=== PATIENT | female | born 1990 | race Caucasian/White ===

== ENCOUNTER 2020-05-07 12:13 | Outpatient (CLI) | payer OTHER, SELFPAY ==
[2020-05-07 12:46] VITALS: BP 142/79; PULSE 123
[2020-05-07 12:56] LABS: Basophils Percent Auto 0.2 % (0.2-1.2); Eosinophils Absolute Auto 0.1 K/mm3 (0-0.3); Eosinophils Percent Auto 0.9 % (0-4.4); Hematocrit 33.9 % (37.0-47.0); Hemoglobin 11.4 g/dL (12.0-15.0); Immature Granulocyte Absolute 0.08 K/mm3 (0.00-0.031); Immature Granulocyte Percent A 0.8 % (0-0.5); Lymphocytes Absolute Auto 1.45 K/mm3 (0.9-3.2); Lymphocytes Percent Auto 13.9 % (18.3-44.2); Mean Corpuscular HGB Conc 33.6 g/dl (32-36); Mean Corpuscular Hemoglobin 26.8 pg (26-34); Mean Corpuscular Volume 79.8 fl (80-100); Mean Platelet Volume 10.4 fl (7.4-10.4); Monocytes Absolute Auto 0.7 K/mm3 (0.1-0.6); Monocytes Percent Auto 6.2 % (2.6-8.5); Neutrophils Absolute Auto 8.2 K/mm3 (1.3-6.7); Platelet Count Result 233 k/mm3 (150-375); Red Blood Count 4.25 M/mm3 (4.2-5.4); Red Cell Distribution Width 13.5 % (11.5-14.5); White Blood Count 10.4 K/mm3 (4.5-10.0)
[2020-05-07 13:01] VITALS: BP 134/84; PULSE 90
[2020-05-07 13:03] LABS: Add Urine Microscopic? YES; Appearance Urine Cloudy (Clear); Bacteria Urine Trace /hpf; Bilirubin Urine Negative (Negative); Blood Urine Negative (Negative); Color Urine Yellow (Yellow); Glucose Urine UA Negative (Negative); Ketones Urine Negative (Negative); Leukocyte Esterase Ur 1+ LEU/UL (NEGATIVE); Mucus Urine Heavy /lpf; Nitrate Urine Negative (Negative); Protein Urine 2+ mg/dL (Negative); Squamous Epithelial Cell Urine Many /hpf (Few); Urobilinogen Urine Negative mg/dL (<2.0)
[2020-05-07 13:05] LABS: Creatinine Urine 336.6 mg/dL; Total Protein Urine Random 7 mg/dL
[2020-05-07 13:13] LABS: Alanine Aminotransferase 17 U/L (4-35); Albumin Level 3.5 g/dL (3.5-5.1); Alkaline Phosphatase 219 U/L (38-126); Anion Gap 8 mmol/L (8-16); Aspartate Amino Transferase 19 U/L (14-36); Bilirubin,Total 0.1 mg/dL (0.2-1.3); Blood Urea Nitrogen 6 mg/dL (7-17); Calcium 9.1 mg/dL (8.4-10.2); Carbon Dioxide 19 mmol/L (22-30); Chloride 108 mmol/L (98-107); Estimated Glomerular Filt Rate > 60; Glucose 124 mg/dL (65-105); Potassium 3.6 mmol/L (3.4-5.0); Sodium 135 mmol/L (137-145); Uric Acid 4.9 mg/dL (2.5-7.5)
[2020-05-07 13:16] VITALS: BP 140/84; PULSE 100
[2020-05-07 13:23] LABS: Specific Grav Ur 1.033 (1.001-1.035)
[2020-05-07 13:28] VITALS: BP 140/84; PULSE 102
--- NOTE | 2020-05-07 13:31 | PC.NURSE ---
Sven DIAZ called, read bp and lab results. Orders received to discharge pt home.
--- NOTE | 2020-05-07 13:36 | PC.NURSE ---
1213-Pt was sent over from office for elevated bp and PIH evaluation.
== END 2020-05-07 13:35 | disposition home or self-care (01) ==
LOC: ANHOBOP 12:21 → ANHOBPP 12:22
PROVIDERS: Advanced Practice Midwife; Visit Provider Obstetrics & Gynecology
DX: O13.9 Gestational [pregnancy-induced] hypertension without significant proteinuria, unspecified trimester (principal)
CPT/HCPCS: 36415; 59025; 80053; 81001; 82570; 84156; 84550; 85025; 87086; 87088; 99199

== ENCOUNTER 2020-05-29 06:24 | Inpatient (IN) | payer OTHER, SELFPAY ==
[2020-05-29] VITALS (98 sets, daily range): BP systolic 103–171; BP diastolic 60–108; PULSE 78–116; TEMP 36.1–36.6; O2SAT 96–100; BMI 35.4
--- NOTE | 2020-05-29 06:48 | LDADM ---
This patient, Nathaly Rowley, was admitted to Labor/Delivery/Recovery 103 on 05/29/20 at 06:24. Plans for labor, pain management and were discussed with patient. Patient/family oriented to hospital policies and general routines including ID bracelet, bed and alarms, visiting hours, pain management, procedures, bathroom and other care routines, personal items, smoking policy, room service/diet and guest tray routines, infant security routines, call light, and visiting hours. Patient/Family are encouraged to report perceived risks to care and to ask questions if they do not understand what they are told or what they should do. See OBIX for further documentation.
[2020-05-29] MEDS: LACTATED RINGERS 1,000 ML 125 ML IV CONT ×3 (07:25→19:24)
[2020-05-29] MEDS: OXYTOCIN 30 UNITS/NS 500 ML 30 UNITS/500 ML BAG IV CONT (07:31)
--- NOTE | 2020-05-29 07:43 | P.HP_ITS ---
H&P: HPI History of Present Illness Date/Time: 05/29/20 07:43 Chief complaint: Induction of Labor Narrative: Nathaly Rowley is a 29 year old female [facility] Family History Family History (Updated 05/14/20 @ 13:43 by Lauren Lucio RN) Father Hypertension Social History Social History Years smoked: 18 Smoking status: Current every day smoker Tobacco type: cigarettes Substance use: current Gender identity (if verbalized by the patient): Female Spiritual care concerns: No Meds Home Medications and Allergies Home Medications Medication Instructions Recorded Confirmed Type PNV no.[id number] 1 tablet PO 05/14/20 History [ Gummies] doxylamine-pyridoxine (vit B6) 1 tablet PO DAILY 05/29/20 05/29/20 History [Diclegis] Allergies Allergy/AdvReac Type Severity Reaction Status Date / Time No Known Allergies Allergy Verified 06/25/16 19:35 Vital Signs Vital Signs - 24 hr 05/29/20 07:00 05/29/20 07:01 05/29/20 07:31 Pulse Rate 101 H 110 H 92 Blood Pressure 138/90 139/88 143/85 H Assessment and Plan Assessment and plan (1) Chronic hypertension: Code(s): I10 - Essential (primary) hypertension Status: Acute
--- NOTE | 2020-05-29 07:44 | WPDOBADMIT ---
Obstetrics - Admit Note Admission Note: record reviewed. No pertinent additions to the history and/or any subsequent changes in the physical findings that are not consistent with the expected course of the were found. BOY KENNEY at 38 weeks, SVE 1 thick high per RN Additions to the history and/or subsequent changes in the physical findings follow. None.
[2020-05-29 08:54] LABS: Basophils Percent Auto 0.4 % (0.2-1.2); Eosinophils Absolute Auto 0.1 K/mm3 (0-0.3); Hematocrit 34.6 % (37.0-47.0); Hemoglobin 11.2 g/dL (12.0-15.0); Immature Granulocyte Absolute 0.09 K/mm3 (0.00-0.031); Immature Granulocyte Percent A 0.8 % (0-0.5); Lymphocytes Absolute Auto 1.87 K/mm3 (0.9-3.2); Lymphocytes Percent Auto 16.7 % (18.3-44.2); Mean Corpuscular HGB Conc 32.4 g/dl (32-36); Mean Corpuscular Hemoglobin 26.3 pg (26-34); Mean Corpuscular Volume 81.2 fl (80-100); Mean Platelet Volume 10.6 fl (7.4-10.4); Monocytes Absolute Auto 0.8 K/mm3 (0.1-0.6); Monocytes Percent Auto 6.9 % (2.6-8.5); Neutrophils Absolute Auto 8.3 K/mm3 (1.3-6.7); Neutrophils Percent Auto 74.2 % (45.5-73.1); Platelet Count Result 228 k/mm3 (150-375); Red Blood Count 4.26 M/mm3 (4.2-5.4); Red Cell Distribution Width 13.8 % (11.5-14.5); White Blood Count 11.2 K/mm3 (4.5-10.0)
[2020-05-29 09:08] LABS: Alanine Aminotransferase 16 U/L (4-35); Albumin Level 3.3 g/dL (3.5-5.1); Alkaline Phosphatase 238 U/L (38-126); Anion Gap 8 mmol/L (8-16); Aspartate Amino Transferase 19 U/L (14-36); Bilirubin,Total 0.2 mg/dL (0.2-1.3); Blood Urea Nitrogen 9 mg/dL (7-17); Calcium 8.9 mg/dL (8.4-10.2); Carbon Dioxide 21 mmol/L (22-30); Chloride 107 mmol/L (98-107); Estimated CRCL calculation 182 ml/min; Estimated Glomerular Filt Rate > 60; Glucose 126 mg/dL (65-105); Potassium 3.7 mmol/L (3.4-5.0); Sodium 136 mmol/L (137-145)
--- NOTE | 2020-05-29 09:37 | WPDANESEPP ---
Anes - Eval Pre Procedure Procedure: labor epidural Date/Time: 05/29/20 09:37 Preop Diagnosis: labor pain Pre Op Diagnosis: Induction of Labor Patient Data Age: 29 Gender: F Height: 5 ft 9 in Weight: 109 kg Last Vital Signs Temp 36.6 C 05/29/20 07:30 Pulse 105 H 05/29/20 09:31 BP 103/60 05/29/20 09:31 Allergies Allergy/AdvReac Type Severity Reaction Status Date / Time No Known Allergies Allergy Verified 06/25/16 19:35 Home Medications Medication Instructions Recorded Confirmed Type PNV no.[id number] 1 tablet PO 05/14/20 History [ Gummies] doxylamine-pyridoxine (vit B6) 1 tablet PO DAILY 05/29/20 05/29/20 History [Diclegis] Laboratory Tests 05/29/20 05/29/20 05/29/20 07:36 07:36 07:36 WBC 11.2 K/mm3 H K/mm3 (4.5-10.0) RBC 4.26 M/mm3 M/mm3 (4.2-5.4) Hgb 11.2 g/dL L g/dL (12.0-15.0) Hct 34.6 % L % (37.0-47.0) MCV 81.2 fl fl (80-100) MCH 26.3 pg pg (26-34) MCHC 32.4 g/dl g/dl (32-36) RDW 13.8 % % (11.5-14.5) Plt Count 228 k/mm3 k/mm3 (150-375) MPV 10.6 fl H fl (7.4-10.4) Immature Gran % (Auto) 0.8 % H % (0-0.5) Neut % (Auto) 74.2 % H % (45.5-73.1) Lymph % (Auto) 16.7 % L % (18.3-44.2) [place] % (Auto) 6.9 % % (2.6-8.5) Eos % (Auto) 1.0 % % (0-4.4) Baso % (Auto) 0.4 % % (0.2-1.2) Lymph # (Auto) 1.87 K/mm3 K/mm3 (0.9-3.2) Barrow # (Auto) 0.8 K/mm3 H K/mm3 (0.1-0.6) Eos # (Auto) 0.1 K/mm3 K/mm3 (0-0.3) Baso # (Auto) 0.0 K/mm3 K/mm3 (0.0-0.1) Abs Immat Gran (auto) 0.09 K/mm3 H K/mm3 (0.00-0.031) Absolute Neuts (auto) 8.3 K/mm3 H K/mm3 (1.3-6.7) Absolute Nucleated RBC 0.0 K/mm3 K/mm3 (0.0-0.012) Nucleated RBC % 0.0 % % (0.0-0.2) Sodium 136 mmol/L L mmol/L (137-145) Potassium 3.7 mmol/L mmol/L (3.4-5.0) Chloride 107 mmol/L mmol/L (98-107) Carbon Dioxide 21 mmol/L L mmol/L (22-30) Anion Gap 8 mmol/L mmol/L (8-16) BUN 9 mg/dL mg/dL (7-17) Creatinine 0.50 mg/dL L mg/dL (0.7-1.0) Estim Creat Clear Calc 182 ml/min ml/min Estimated GFR > 60 (59 - ) Glucose 126 mg/dL H mg/dL (65-105) Calcium 8.9 mg/dL mg/dL (8.4-10.2) Total Bilirubin 0.2 mg/dL mg/dL (0.2-1.3) AST 19 U/L U/L (14-36) ALT 16 U/L U/L (4-35) Alkaline Phosphatase 238 U/L H U/L (38-126) Total Protein 7.0 g/dL g/dL (6.3-8.2) Albumin 3.3 g/dL L g/dL (3.5-5.1) RPR Pending Patient hx anesthesia problems: none Family hx anesthesia problems: none [facility] Family History Family History (Updated 05/14/20 @ 13:43 by Lauren Lucio RN) Father Hypertension Social History Social History Years smoked: 18 Smoking status: Current every day smoker Tobacco type: cigarettes Substance use: current Gender identity (if verbalized by the patient): Female Spiritual care concerns: No Exam Day of Procedure 05/29/20 09:37
--- NOTE | 2020-05-29 17:42 | PM.OBPNVD ---
OB - PN: Subj Subjective Date/time seen: 05/29/20 17:42 AROM - clear, 2-3/50/-2 Reassuring status OB - PN: Obj Data Labs CBC & Chem 7: 05/29/20 07:36 05/29/20 07:36 Labs: Laboratory Results - last 24 hr 05/29/20 05/29/20 05/29/20 07:36 07:36 07:36 WBC 11.2 H RBC 4.26 Hgb 11.2 L Hct 34.6 L MCV 81.2 MCH 26.3 MCHC 32.4 RDW 13.8 Plt Count 228 MPV 10.6 H Immature Gran % (Auto) 0.8 H Neut % (Auto) 74.2 H Lymph % (Auto) 16.7 L Esmeralda % (Auto) 6.9 Eos % (Auto) 1.0 Baso % (Auto) 0.4 Lymph # (Auto) 1.87 Esmeralda # (Auto) 0.8 H Eos # (Auto) 0.1 Baso # (Auto) 0.0 Abs Immat Gran (auto) 0.09 H Absolute Neuts (auto) 8.3 H Absolute Nucleated RBC 0.0 Nucleated RBC % 0.0 Sodium 136 L Potassium 3.7 Chloride 107 Carbon Dioxide 21 L Anion Gap 8 BUN 9 Creatinine 0.50 L Estim Creat Clear Calc 182 Estimated GFR > 60 Glucose 126 H Calcium 8.9 Total Bilirubin 0.2 AST 19 ALT 16 Alkaline Phosphatase 238 H Total Protein 7.0 Albumin 3.3 L Blood Type A Positive Antibody Screen Negative OB - PN A/P Time Spent With Patient Time: Total time spent is greater than 50% in coordination of care (as documented) at patient's floor/unit and/or counseling patient:
--- NOTE | 2020-05-29 23:29 | PM.OBPRVD ---
OB - Delivery Note Procedure Delivery date: 05/29/20 Procedure: Vaginal delivery. events: Induced HTN (chronic) and Labor Induction Intrapartal events: None Induction method: AROM and per pitocin protocol Delivery monitor: internal FHT and internal uterine Route of delivery: Episiotomy description: None Laceration description: None Specimen: Yes Estimated blood loss (mL): 145 Anesthesia type: Epidural Disposition: other () Baby Date of : 05/29/20 Time of : 23:19 Weeks of gestation at delivery: 38 gender: Female Weight (pounds): 6 Weight (ounces): 5 presentation: vertex position: Left Occiput Anterior Placenta delivery description: Spontaneous cord vessel description: 3 Vessels and Clamped/Cut score one minute: 8 score five minutes: 9 Narrative: Mother and baby [id number] in stable condition.
[2020-05-29] MEDS: OXYTOCIN 30 UNITS/NS 500 ML 30 UNITS/500 ML BAG 125 UNITS IV CONT (23:52)
[2020-05-29] MEDS: IBUPROFEN 600 MG TABLET PO (23:53)
[2020-05-29] MEDS: BENZOCAINE 20% AER SPR (*SP) 56 GM CAN 1 SPRAY TOPICAL (23:54)
[2020-05-29] MEDS: WITCH HAZEL 40 PADS 1 PAD TOPICAL (23:54)
[2020-05-30] VITALS (10 sets, daily range): BP systolic 126–153; BP diastolic 75–112; PULSE 87–117; RESP 16; TEMP 36.4–36.6; O2SAT 99–100
--- NOTE | 2020-05-30 01:54 | OBPPTRN ---
Patient transferred to post room #280 via wheelchair. Support person present. Oriented to unit, room, information board, rooming in, admission packet and security measures. Patient verbalizes understanding. in level II nursery.
[2020-05-30 05:37] LABS: Hematocrit 33.9 % (37.0-47.0); Hemoglobin 11.1 g/dL (12.0-15.0)
[2020-05-30] MEDS: DOCUSATE SODIUM 100 MG CAPSULE PO (07:42)
[2020-05-30] MEDS: IBUPROFEN 600 MG TABLET PO ×2 (07:42→13:51)
--- NOTE | 2020-05-30 07:50 | PM.OBPNVD ---
OB - PN: Subj Subjective Date/time seen: 05/30/20 07:50 Patient comments: no complaints, pain well controlled and other (Lochia similar to menses) Decker baby status: doing well OB - PN: Obj Data Labs CBC & Chem 7: 05/30/20 04:53 05/29/20 07:36 Labs: Laboratory Results - last 24 hr 05/29/20 05/29/20 05/29/20 07:36 07:36 07:36 WBC 11.2 H RBC 4.26 Hgb 11.2 L Hct 34.6 L MCV 81.2 MCH 26.3 MCHC 32.4 RDW 13.8 Plt Count 228 MPV 10.6 H Immature Gran % (Auto) 0.8 H Neut % (Auto) 74.2 H Lymph % (Auto) 16.7 L [place] % (Auto) 6.9 Eos % (Auto) 1.0 Baso % (Auto) 0.4 Lymph # (Auto) 1.87 [place]born # (Auto) 0.8 H Eos # (Auto) 0.1 Baso # (Auto) 0.0 Abs Immat Gran (auto) 0.09 H Absolute Neuts (auto) 8.3 H Absolute Nucleated RBC 0.0 Nucleated RBC % 0.0 Sodium 136 L Potassium 3.7 Chloride 107 Carbon Dioxide 21 L Anion Gap 8 BUN 9 Creatinine 0.50 L Estim Creat Clear Calc 182 Estimated GFR > 60 Glucose 126 H Calcium 8.9 Total Bilirubin 0.2 AST 19 ALT 16 Alkaline Phosphatase 238 H Total Protein 7.0 Albumin 3.3 L Blood Type A Positive Antibody Screen Negative 05/30/20 04:53 WBC RBC Hgb 11.1 L Hct 33.9 L MCV MCH MCHC RDW Plt Count MPV Immature Gran % (Auto) Neut % (Auto) Lymph % (Auto) [place] % (Auto) Eos % (Auto) Baso % (Auto) Lymph # (Auto) [place] # (Auto) Eos # (Auto) Baso # (Auto) Abs Immat Gran (auto) Absolute Neuts (auto) Absolute Nucleated RBC Nucleated RBC % Sodium Potassium Chloride Carbon Dioxide Anion Gap BUN Creatinine Estim Creat Clear Calc Estimated GFR Glucose Calcium Total Bilirubin AST ALT Alkaline Phosphatase Total Protein Albumin Blood Type Antibody Screen OB - PN A/P Plan day: 1 (s/p vaginal delivery, doing well) Plan: routine care Time Spent With Patient Time: Total time spent is greater than 50% in coordination of care (as documented) at patient's floor/unit and/or counseling patient: Exam Const: General: no acute distress GI: Inspection: other (Fundus firm and nontender at umbilicus) GI Palp: Yes Soft to palpation and No Tenderness to palpation present (GI) Extrem: General: no edema
--- NOTE | 2020-05-30 08:14 | WPDANLDPN2 ---
Anes-Prog Note L&D Date/Time: 05/30/20 08:14 Comfortable throughout: labor Neuraxial method: epidural Epidural/Spinal procedure site: clean & non-tender Neuro status: Neuro function grossly intact. Cardiovascular status: normal Respiratory status: normal Airway patency: baseline Mental status: baseline Post-Op hydration status: normal Vital Signs: Last Vital Signs Temp 36.4 C 05/30/20 01:54 Pulse 90 05/30/20 01:54 Resp 16 05/30/20 01:54 BP 131/86 05/30/20 01:54 Pulse Ox 100 05/30/20 01:54 I/O: Intake & Output 05/29/20 05/30/20 05/30/20 23:59 07:59 15:59 Intake Total 2500 Output Total 65 Balance 2500 -65 Post-procedural complaints: none Patient feedback: Patient satisfied with anesthetic care.
[2020-05-30 10:03] LABS: Rapid Plasma Reagin Non-Reactive (NonReactive)
--- NOTE | 2020-05-30 10:18 | WPDANESEPPF ---
Anes - Initial Pre Proc Eval Procedure: Operation Date: 05/30/20 12:00 Proposed Procedures p Post- Tubal Ligation - Kathryn Colbert MD Date/Time: 05/30/20 10:18 Surgeon: Kathryn Colbert MD Pre Op Diagnosis: Induction of Labor Patient Data Age: 29 Gender: F Height: 1.75 m Weight: 109 kg Last Vital Signs Temp 36.6 C 05/30/20 07:35 Pulse 87 05/30/20 07:35 Resp 16 05/30/20 07:35 BP 140/94 H 05/30/20 09:25 Pulse Ox 99 05/30/20 07:35 Allergies Allergy/AdvReac Type Severity Reaction Status Date / Time No Known Allergies Allergy Verified 06/25/16 19:35 Home Medications Medication Instructions Recorded Confirmed Type PNV no.[id number] 1 tablet PO 05/14/20 History [ Gummies] doxylamine-pyridoxine (vit B6) 1 tablet PO DAILY 05/29/20 05/29/20 History [Diclegis] Laboratory Tests 05/29/20 05/30/20 07:36 04:53 Hgb 11.1 g/dL L g/dL (12.0-15.0) Hct 33.9 % L % (37.0-47.0) RPR Non-reactive (NonReactive) Patient hx anesthesia problems: none Family hx anesthesia problems: none PMFSH Past Medical History Medical History (Updated 05/30/20 @ 10:19 by Chad Dorsey MD) Anxiety Chronic hypertension Family History Family History (Updated 05/14/20 @ 13:43 by Lauren Lucio RN) Father Hypertension Social History Social History Years smoked: 18 Smoking status: Current every day smoker Tobacco type: cigarettes Substance use: current Gender identity (if verbalized by the patient): Female Spiritual care concerns: No Anes - Eval Final PreProcedure Day of Procedure 05/30/20 10:18 Patient weight: obese Heart: regular rate and rhythm Lungs: clear to auscultation and normal air movement Airway: Mallampati scale class II Neurological: alert and oriented Last oral intake: >/= 8 hours ASA classification: III Emergent: no Anesthetic plan: proceed Anesthesia type and monitoring: general GIVS Informed Consent: The patient's anesthetic plan and its attendant risks and benefits were discussed with the patient/family/POA. Questions were solicited and answers provided to the satisfaction of the patient/family/POA.
--- NOTE | 2020-05-30 11:01 | PM.OBDSVD ---
DS: Admitting Diagnosis Admitting Diagnosis Admitting Diagnosis: Induction of Labor DS: Discharge Diagnosis Discharge Diagnosis (1) Term : Code(s): Z34.90 - Encounter for supervision of normal , unspecified, unspecified trimester Status: Acute OB - DS: Summary Hospital Course Hospital Course: unremarkable, the patient had a vaginal , she is recovering normally, her hospital course was unremarkable. She is being discharged early due to her baby being transferred to tertiary care center. OB Procedures : NST OB Procedures Intrapartum: Spontaneous Vag Delivery OB Procedures: : None Peripartum Data Delivery Method: Natural Vaginal Procedures: Procedures Operation Date: 05/30/20 12:00 <No data on this case meets the specified criteria> Status at Discharge Functional status at discharge: independent ambulation Time Spent with Patient Time attestation: Total time spent providing and/or coordinating discharge services: DS: Data Data Completed and Pending Labs on day of discharge: Labs from last 24 hours 05/30/20 05/29/20 04:53 07:36 Hgb 11.1 L Hct 33.9 L RPR Non-reactive Discharge Plan Discharge Attending physician on discharge: Kathryn Colbert Consulting providers: Constance Manrique ; Chad Dorsey Discharging Clinician: Kathryn Colbert Patient Disposition: Home, Self-Care Activity: pelvic rest Diet: as tolerated Discharge Instructions: //Education:// Mom and Baby Guide Given to: Patient Follow-Up: Call your delivering provider's office for an appointment to be seen in: 1 week B/P check Come to the [facility] for the follow-up appointment. Appointment Date/Time: 05/31/2020 at 9:00am Call [phone] if you are unable to keep your appointment time. BREAST CARE: * Wear a snug supportive bra. * For engorgement discomfort: Bottle Feeding: * May apply ice packs EPISIOTOMY/PERINEAL CARE: * Until bleeding stops, use your krystin bottle after urinating * Change your pad frequently throughout the day * You may take sitz baths several times a day (fill your bathtub with warm water and soak for 20 minutes.) Do NOT bathe in the water * No tub baths until seen by your physician - You may shower ACTIVITY: * Rest as much as possible. * Do not exercise or lift anything heavier than your baby (such as laundry or other children.) * Avoid stairs or driving as much as possible. * Do not put anything into the vagina. No douching, tampons, or sexual activity until seen by physician. NOTIFY PHYSICIAN IF YOU HAVE ANY QUESTIONS OR IF ANY OF THE FOLLOWING SYMPTOMS OCCUR: * If your episiotomy or incision becomes red, swollen, or more painful than what you have experienced in the hospital. * If your vaginal bleeding becomes foul smelling. * If your vaginal bleeding becomes more heavy than a period or if your bleeding changes from pink to bright red. However, you may pass an occasional walnut-sized clot once or twice for the first week . * If you experience a sharp, shooting pain in you calves. * If you discover a hard, reddened area on your breast or if you experience flu-like symptoms. DIET: * Eat regular, well-balanced meals. * Drink plenty of fluids daily. If , drink to thirst. Patient Instructions: How to Stop Smoking (GEN) Follow-up/Referrals: Kathryn Colbert MD [Physician] - Discharge Medications: Continued Gummies 400 mcg-35 mg- 25 mg-5 mg Tablet,Chewable 1 tablet PO RF: 0 doxylamine-pyridoxine (vit B6) [Diclegis] 10-10 mg Tablet,Delayed Release (Dr/Ec) 1 tablet PO DAILY RF: 0 Date of admission: 05/29/20 06:24 Primary Care Provider: PHYSICIAN,PHOTOGEOLOGIST Admitting Provider: Kathryn Colbert Discharge Date/Time: 05/30/20 14:01 Attending physician on admission: Kathryn Colbert
[2020-05-30] MEDS: TETANUS,DIPHTHERIA,AC PERTUSSIS ADULT (0.5 ML) BOOSTRIX IM (12:32)
[2020-05-30] MEDS: MULTIVIT/MIN/PREN/FOL AC/IRON TABLET 1 TAB PO (12:32)
[2020-05-30] MEDS: MEASLES,MUMPS,RUBELLA VACCINE 0.5 ML VIAL SUB-Q (12:33)
[2020-05-31 09:12] VITALS: BP 162/97; PULSE 122; RESP 22; TEMP 36.8; O2SAT 100
== END 2020-05-30 14:01 | disposition home or self-care (01) | DRG 560 ==
LOC: ANHLDR 06:29 → ANHOB2 05-30 03:18
PROVIDERS: Advanced Practice Midwife; Admitting Provider Obstetrics & Gynecology; Visit Provider Obstetrics & Gynecology
DX: O10.02 Pre-existing essential hypertension complicating childbirth (principal); Z37.0 Single live birth; Z3A.38 38 weeks gestation of pregnancy; Z23 Encounter for immunization; O99.334 Smoking (tobacco) complicating childbirth; F17.210 Nicotine dependence, cigarettes, uncomplicated; O99.344 Other mental disorders complicating childbirth; F41.9 Anxiety disorder, unspecified; O99.214 Obesity complicating childbirth; E66.9 Obesity, unspecified
CPT/HCPCS: 36415; 80053; 85014; 85018; 85025; 86592; 86850; 86900; 86901; 88307; 90471; 90686; 90710; 90715; A9270; G0008; J2590; J2795; J7120

== ENCOUNTER 2020-06-11 11:24 | Outpatient (CLI) | payer OTHER, SELFPAY ==
[2020-06-11] VITALS (22 sets, daily range): BP systolic 73–159; BP diastolic 32–114; PULSE 65–104
[2020-06-11 12:09] LABS: Basophils Absolute Auto 0.1 K/mm3 (0.0-0.1); Basophils Percent Auto 0.6 % (0.2-1.2); Eosinophils Absolute Auto 0.4 K/mm3 (0-0.3); Eosinophils Percent Auto 4.2 % (0-4.4); Hematocrit 35.7 % (37.0-47.0); Hemoglobin 11.5 g/dL (12.0-15.0); Immature Granulocyte Absolute 0.03 K/mm3 (0.00-0.031); Immature Granulocyte Percent A 0.3 % (0-0.5); Lymphocytes Absolute Auto 1.83 K/mm3 (0.9-3.2); Lymphocytes Percent Auto 20.2 % (18.3-44.2); Mean Corpuscular HGB Conc 32.2 g/dl (32-36); Mean Corpuscular Hemoglobin 25.9 pg (26-34); Mean Corpuscular Volume 80.4 fl (80-100); Mean Platelet Volume 9.6 fl (7.4-10.4); Monocytes Absolute Auto 0.6 K/mm3 (0.1-0.6); Monocytes Percent Auto 7.1 % (2.6-8.5); Neutrophils Absolute Auto 6.1 K/mm3 (1.3-6.7); Neutrophils Percent Auto 67.6 % (45.5-73.1); Platelet Count Result 260 k/mm3 (150-375); Red Blood Count 4.44 M/mm3 (4.2-5.4); Red Cell Distribution Width 13.2 % (11.5-14.5); White Blood Count 9.1 K/mm3 (4.5-10.0)
[2020-06-11 12:21] LABS: Alanine Aminotransferase 16 U/L (4-35); Albumin Level 3.7 g/dL (3.5-5.1); Alkaline Phosphatase 159 U/L (38-126); Anion Gap 6 mmol/L (8-16); Aspartate Amino Transferase 19 U/L (14-36); Bilirubin,Total 0.5 mg/dL (0.2-1.3); Blood Urea Nitrogen 9 mg/dL (7-17); Calcium 9.1 mg/dL (8.4-10.2); Carbon Dioxide 24 mmol/L (22-30); Chloride 107 mmol/L (98-107); Estimated Glomerular Filt Rate > 60; Glucose 106 mg/dL (65-105); Potassium 3.7 mmol/L (3.4-5.0); Sodium 137 mmol/L (137-145); Uric Acid 5.4 mg/dL (2.5-7.5)
[2020-06-11] MEDS: LABETALOL HCL 100 MG TABLET 200 MG PO (12:47)
[2020-06-11] MEDS: LABETALOL HCL 100 MG TABLET PO (15:22)
== END 2020-06-11 19:12 | disposition home or self-care (01) ==
LOC: ANHOBOP 11:28 → ANHOBPP 11:29
PROVIDERS: Visit Provider Obstetrics & Gynecology
DX: O13.9 Gestational [pregnancy-induced] hypertension without significant proteinuria, unspecified trimester (principal)
CPT/HCPCS: 36415; 80053; 84550; 85025; 99199; A9270

== ENCOUNTER 2020-07-21 01:18 | Outpatient (CLI) | payer OTHER, SELFPAY ==
[2020-07-21 22:13] LABS: SARS-CoV-2 RNA PCR Negative
== END 2020-07-21 01:19 | disposition home or self-care (01) ==
LOC: ANHCOVIDDT 01:18
PROVIDERS: Visit Provider Obstetrics & Gynecology
DX: Z01.812 Encounter for preprocedural laboratory examination (principal); Z20.828 Contact with and (suspected) exposure to other viral communicable diseases
CPT/HCPCS: 87635; C9803; U0003

== ENCOUNTER 2020-07-24 00:32 | Day surgery (SDC) | payer OTHER, SELFPAY ==
[2020-07-11 10:18] VITALS: BMI 34.2
[2020-07-24] VITALS (11 sets, daily range): BP systolic 128–165; BP diastolic 86–104; PULSE 51–89; RESP 12–20; TEMP 36.4–36.6; O2SAT 95–100
[2020-07-24] MEDS: ACETAMINOPHEN 500 MG TABLET 1000 MG PO (06:37)
--- NOTE | 2020-07-24 06:51 | WPDANESEPPF ---
Anes - Initial Pre Proc Eval Procedure: Operation Date: 07/24/20 07:30 Proposed Procedures p Laparoscopic Bilateral Tubal Cauterization - Kathryn Colbert MD Date/Time: 07/24/20 06:51 Surgeon: Kathryn Colbert MD Pre Op Diagnosis: Desires Sterilization Patient Data Age: 29 Gender: F Height: 5 ft 8 in Weight: 98.25 kg Last Vital Signs Temp 36.6 C 07/24/20 06:15 Pulse 89 07/24/20 06:15 Resp 16 07/24/20 06:15 BP 151/104 H 07/24/20 06:15 Pulse Ox 98 07/24/20 06:15 Allergies Allergy/AdvReac Type Severity Reaction Status Date / Time No Known Allergies Allergy Verified 07/24/20 06:26 Home Medications Medication Instructions Recorded Confirmed Type No Home Medications 07/11/20 07/24/20 History Patient hx anesthesia problems: none Family hx anesthesia problems: none PMFSH Past Medical History Medical History Anxiety Chronic hypertension Family History Family History (Updated 05/14/20 @ 13:43 by Lauren Lucio RN) Father Hypertension Social History Social History Years smoked: 18 Smoking status: Current every day smoker Tobacco type: cigarettes Alcohol intake: current Drinks per week: 2 Substance use: current Substance use type: marijuana Last use: 07/11/2020 Gender identity (if verbalized by the patient): Female Spiritual care concerns: No Anes - Eval Final PreProcedure Day of Procedure 07/24/20 06:51 Patient weight: obese Heart: regular rate and rhythm Lungs: decreased breath sounds Airway: Mallampati scale class 1 Neurological: alert and oriented Last oral intake: >/= 8 hours ASA classification: III Emergent: no Anesthetic plan: proceed Anesthesia type and monitoring: general ETT and standard monitoring Informed Consent: The patient's anesthetic plan and its attendant risks and benefits were discussed with the patient/family/POA. Questions were solicited and answers provided to the satisfaction of the patient/family/POA.
--- NOTE | 2020-07-24 06:53 | SUR.PREOP ---
0650 dr ontiveros aware bp 151/104.no ekg needed.
[2020-07-24] MEDS: LACTATED RINGERS 1,000 ML 30 ML IV CONT ×2 (06:55→09:16)
[2020-07-24] MEDS: KETOROLAC 15 MG/ML VIAL (*BKC) IV PUSH (07:02)
--- NOTE | 2020-07-24 07:10 | WPDHPUPDATE1 ---
History and Physical Update Update Date/Time: 07/24/20 07:10 History and Physical has been reviewed, including an updated exam of the patient. There are NO changes in the patient's condition. Risks, benefits, and alternatives have been discussed and questions answered. Patient agrees to proceed with procedure.
--- NOTE | 2020-07-24 07:24 | PM.IMHP ---
H&P: HPI History of Present Illness Date/Time: 07/24/20 07:24 Chief complaint: Desires Sterilization Narrative: Nathaly Rowley is a 29 year old female , multi hip, who presents for female sterilization. We are going to perform laparoscopic bilateral tubal ligation. She understands the risks. She understands that injuries may occur that result in hospitalization, more surgery, severe illness. She understands the risk of hemorrhage and infection. Review of Systems Constitutional: Constitutional: Reports no additional constitutional complaints, Denies fatigue, Denies headache(s), Denies lethargy and Denies weakness Eyes: Eyes: Reports no additional eye complaints, Denies blurry vision and Denies photophobia ENT: Reports as per HPI, Denies headache(s) and Denies neck pain Cardiovascular: Cardiovascular: Denies chest pain, Denies diaphoresis, Denies leg edema, Denies palpitations and Denies dyspnea Respiratory: Respiratory: Denies hemoptysis, Denies dyspnea and Denies wheezing Gastrointestinal: Gastrointestinal: Denies abdominal pain, Denies melena, Denies bloating, Denies hematochezia, Denies nausea and Denies vomiting Genitourinary: Genitourinary: Reports no additional female genitourinary complaints Musculoskeletal: Musculoskeletal: Denies joint swelling, Denies neck pain, Denies numbness and Denies stiffness Neurologic: Denies Abnormal speech present, Denies confusion, Denies headache(s), Denies numbness and Denies weakness Psychiatric: Psychiatric: Denies anxiety, Denies confusion, Denies depression, Denies homicidal ideation and Denies suicidal ideation Endocrine: Endocrine: Denies fatigue and Denies palpitations Allergic/Immunologic: Allergic/Immunologic: Denies wheezing PMFSH Past Medical History Medical History Anxiety Chronic hypertension Family History Family History (Updated 05/14/20 @ 13:43 by Lauren Lucio RN) Father Hypertension Social History Social History Years smoked: 18 Smoking status: Current every day smoker Tobacco type: cigarettes Alcohol intake: current Drinks per week: 2 Substance use: current Substance use type: marijuana Last use: 07/11/2020 Gender identity (if verbalized by the patient): Female Spiritual care concerns: No Meds Home Medications and Allergies Home Medications Medication Instructions Recorded Confirmed Type No Home Medications 07/11/20 07/24/20 History Allergies Allergy/AdvReac Type Severity Reaction Status Date / Time No Known Allergies Allergy Verified 07/24/20 06:26 Vital Signs Vital Signs - 24 hr 07/24/20 06:15 Temperature 97.9 F Pulse Rate 89 Respiratory Rate 16 Blood Pressure 151/104 H Pulse Oximetry 98 Exam Const: General: healthy appearing, comfortable and no acute distress; No confusion Orientation/consciousness: No confusion Eyes: Direct Ophthalmoscopy: No photophobia Resp: Auscultation: clear to auscultation bilaterally, no rales, no rhonchi and no wheezes Cardio: Rate: regular rate Heart sounds: no click, no murmurs and no rubs GI: Inspection: non-distended GI Palp: No abdominal tenderness Auscultation: normal bowel sounds Neuro: General: No confusion Speech: No Abnormal speech present Extrem: General: normal to inspection, no pedal edema and no calf tenderness Assessment and Plan Assessment and plan (1) Encounter for female sterilization procedure: Code(s): Z30.2 - Encounter for sterilization Status: Acute Assessment and Plan: this patient is a 29-year-old multiparous female who presents for laparoscopic bilateral tubal ligation. She understands the risks, benefits, and alternatives. She has completed the informed consent process is ready to proceed.
--- NOTE | 2020-07-24 08:01 | PM.PROC ---
Procedure Note - Detailed Date of procedure: 07/24/20 Pre-op diagnosis: Desires Sterilization Post-op diagnosis: same Procedure performed: Laparoscopic bilateral tubal ligation Description of procedure: Patient was taken the operating room. She has prepped draped in the dorsal lithotomy position after induction of general anesthesia. A 5 mm abdominal incision was made in left upper quadrant of the abdomen with scalpel. A 5 mm trocars inserted the intra-abdominal cavity under direct visualization of the scope. Pneumoperitoneum was achieved. A 5 mm periumbilical incision was made using a scalpel on the abdominal scan. A 5 mm trocar was inserted the intra-abdominal cavity under visualization of the scope. The fallopian tube was grasped with the bipolar cautery in the ampullary region. It was completely desiccated in a 1.5 cm area of the fallopian tube. This was performed in identical fashion on the contralateral side. The instruments were withdrawn. The pneumoperitoneum was reduced. The trocars were removed. The skin was closed with subcuticular 4 Monocryl. This incisions were covered with Dermabond. The patient tolerated the procedure well. She was taken to recover room in stable condition. Anesthesia: GETA Surgeon: Kathryn Colbert MD Estimated blood loss (mL): 10 Drains: No Packing: No Pathology: none sent Complications: No immediate complications Condition: stable Disposition: PACU Findings: Normal female pelvic anatomy.
--- NOTE | 2020-07-24 08:48 | SUR.PHASEI ---
0845 DR LARIOS AWARE OF BP 155/102 & HR 51- NO ORDERS TO TREAT AT THIS TIME.
[2020-07-24] MEDS: fentaNYL CITRATE INJ (*CRX) 100 MCG/2 ML VIAL 25 MCG IV PUSH ×2 (09:05→09:08)
== END 2020-07-24 10:45 | disposition home or self-care (01) ==
PROVIDERS: Visit Provider Obstetrics & Gynecology
PROC: (CPT 58671; principal; 2020-07-24 07:30)
DX: Z30.2 Encounter for sterilization (principal); F17.210 Nicotine dependence, cigarettes, uncomplicated; F12.90 Cannabis use, unspecified, uncomplicated
CPT/HCPCS: 58670; A9270; J1100; J1885; J2250; J2405; J2704; J2710; J3010; J7120

== ENCOUNTER 2023-05-29 17:15 | Emergency (ER) | payer OTHER, SELFPAY ==
--- NOTE | ~2023-05-29 | CT_ITS ---
EXAMINATION: CT abdomen pelvis w con DATE: 05/29/2023 19:13 INDICATION: Right upper quadrant abdominal pain, nausea and vomiting TECHNIQUE: Computed tomography (CT) of the abdomen and pelvis was performed with 100 mL Omnipaque-350 intravenous contrast. Automated exposure control and iterative reconstruction technique were employe d. The dose-length product was 1395.31 mGy-cm. COMPARISON: None FINDINGS: Lung bases are clear. Heart size is normal. No pericardial or pleural effusion. Liver, gallbladder, s pleen, pancreas, bilateral adrenal glands and kidneys are normal. Bladder, anteverted uterus and bila teral adnexa are unremarkable. There is fatty infiltration of multiple loops of ileum predominantly i n the right lower quadrant which could be related to body habitus could also be seen with chronic inf lammation such as Crohn's disease. There is fluid throughout the colon consistent with diarrhea. No b owel obstruction. Normal appendix. No free intraperitoneal gas or fluid. No pathologically enlarged a bdominal or pelvic lymphadenopathy. Bones are unremarkable. IMPRESSION: 1. Wall thickening with fatty infiltration of multiple loops of ileum which could be due to body habi tus or sequela of chronic inflammation such as in the setting of Crohn's disease. Correlate with clin ical history. 2. Fluid throughout the colon consistent with nonspecific diarrhea. Reviewed, dictated and finalized at location A. IMPRESSION: 1. Wall thickening with fatty infiltration of multiple loops of ileum which cou ld be due to body habitus or sequela of chronic inflammation such as in the set ting of Crohn's disease. Correlate with clinical history. 2. Fluid throughout the colon consistent with nonspecific diarrhea.
[2023-05-29 17:36] VITALS: BP 166/100; PULSE 87; RESP 18; TEMP 36.6; O2SAT 97
[2023-05-29 18:00] LABS: Basophils Percent Auto 0.3 % (0.2-1.2); Eosinophils Absolute Auto 0.1 K/mm3 (0-0.3); Eosinophils Percent Auto 1.1 % (0-4.4); Hematocrit 41.5 % (37.0-47.0); Hemoglobin 13.5 g/dL (12.0-15.0); Immature Granulocyte Absolute 0.03 K/mm3 (0.00-0.031); Immature Granulocyte Percent A 0.3 % (0-0.5); Lymphocytes Absolute Auto 1.48 K/mm3 (0.9-3.2); Lymphocytes Percent Auto 14.2 % (18.3-44.2); Mean Corpuscular HGB Conc 32.5 g/dl (32-36); Mean Corpuscular Hemoglobin 26.6 pg (26-34); Mean Corpuscular Volume 81.7 fl (80-100); Mean Platelet Volume 9.1 fl (7.4-10.4); Monocytes Absolute Auto 0.6 K/mm3 (0.1-0.6); Neutrophils Absolute Auto 8.2 K/mm3 (1.3-6.7); Neutrophils Percent Auto 78.1 % (45.5-73.1); Platelet Count Result 382 k/mm3 (150-375); Red Blood Count 5.08 M/mm3 (4.2-5.4); Red Cell Distribution Width 12.9 % (11.5-14.5); White Blood Count 10.4 K/mm3 (4.5-10.0)
--- NOTE | 2023-05-29 18:05 | ED.GENADULT ---
HPI - General Adult General Chief complaint: Abdominal Pain <Tani Allison PA-C - Last Filed: 05/30/23 00:52> Stated complaint: abdominal pain <Tani Allison PA-C - Last Filed: 05/30/23 00:52> Time Seen by Provider: 05/29/23 18:04 <Tani Allison PA-C - Last Filed: 05/30/23 00:52> Source: patient <FARIDA Palomino Last Filed: 05/30/23 00:52> Mode of arrival: ambulatory <FARIDA Palomino Last Filed: 05/30/23 00:52> Limitations: no limitations <Tani Allison PA-C - Last Filed: 05/30/23 00:52> History of Present Illness HPI narrative: This is a 32-year-old female who presents to the ED with chief complaint of intermittent abdominal pain, nausea, vomiting for the past 2 to 3 months. Patient reports that she has alternating diarrhea and constipation with bowel movements for the last several months as well. She states she feels bloated right now. States that today her pain is all throughout the abdomen and seems like it radiates down the sides bilaterally. She does report that she has had more concentrated pain in the right upper quadrant at times. States she had an ultrasound a month ago which did not indicate any acute cholecystitis. Patient reports that she has undergone work-ups for this in the past and has not had no one to give her an answer. Denies any GI bleeding symptoms. Denies chest pain, shortness of breath, cough, urinary problems. Denies flank pain or back pain. <Tani Allison PA-C - Last Filed: 05/30/23 00:52> Related Data Allergies/adverse reactions: Allergies Allergy/AdvReac Type Severity Reaction Status Date / Time No Known Allergies Allergy Verified 05/29/23 17:16 <Tani Allison PA-C - Last Filed: 05/30/23 00:52> Review of Systems Review of Systems: All systems as dictated in HPI <Tani Allison PA-C - Last Filed: 05/30/23 00:52> [facility] Past Medical History Medical History: Medical History Anxiety Chronic hypertension <Tani Allison PA-C - Last Filed: 05/30/23 00:52> Family History Family History: Family History (Updated 05/14/20 @ 13:43 by Lauren Lucio RN) Father Hypertension <Tani Allison PA-C - Last Filed: 05/30/23 00:52> Social History Social History: Social History Years smoked: 18 Smoking status: Current every day smoker Tobacco type: cigarettes Alcohol intake: current Drinks per week: 2 Substance use: current Substance use type: marijuana Last use: 07/11/2020 Gender identity (if verbalized by the patient): Female Spiritual care concerns: No <Tani Allison PA-C - Last Filed: 05/30/23 00:52> Exam Narrative: GENERAL: Well-appearing, well-nourished, and in no acute distress. HEAD: Normocephalic, atraumatic. EYES: PERRLA and EOMI. ENT: Nares clear, no rhinorrhea or epistaxis. Mucous membranes moist. Oropharynx without tonsillar hypertrophy exudate or other lesions. NECK: Supple. No adenopathy or masses. CHEST: No respiratory distress. Clear to auscultation. No wheezes rales or rhonchi HEART: Regular rate and rhythm. No murmur heard. Normal peripheral pulses. ABDOMEN: Generalized abdominal tenderness. Soft, nondistended, normal active bowel sounds. MSK: Normal range of motion. No edema. SKIN: Warm, dry, no rash. NEURO: Alert and oriented x3. No focal deficits. PSYCH: Normal mood and affect. <Tani Allison PA-C - Last Filed: 05/30/23 00:52> Course FSR/PA Physician Supervision This is a was performed by both a physician and an APC. I performed all aspects of the MDM as documented w/ the following additions: All questions answered. Patient in agreement w/ disposition. <Pelon Pathak MD - Last Filed: 05/30/23 06:13> Vital Signs Vital signs: Vital Signs Temperature 97.8 F 05/29/23 17:36 Pulse Rate 87 05/29/23 17:36 Respiratory Rate 18 05/29/23 17:36 Blood Pressure 166/
[2023-05-29 18:10] LABS: Alanine Aminotransferase 48 U/L (6-35); Albumin Level 4.6 g/dL (3.5-5.1); Alkaline Phosphatase 111 U/L (38-126); Anion Gap 9 mmol/L (8-16); Aspartate Amino Transferase 28 U/L (14-36); Bilirubin,Total 0.5 mg/dL (0.2-1.3); Blood Urea Nitrogen 10 mg/dL (7-17); Calcium 9.8 mg/dL (8.4-10.2); Carbon Dioxide 25 mmol/L (22-30); Chloride 107 mmol/L (98-107); Estimated CRCL calculation 153 ml/min; Estimated Glomerular Filt Rate > 60; Glucose 100 mg/dL (65-110); Lipase 144 U/L (23-300); Potassium 4.3 mmol/L (3.4-5.0); Sodium 141 mmol/L (137-145)
[2023-05-29] MEDS: HYDROmorphone HCL INJ (*CRX) 1 MG/ML SYR 0.5 MG IV PUSH (18:51)
[2023-05-29] MEDS: SODIUM CHLORIDE 0.9% IV 1,000 ML 999 ML IV CONT (18:51)
[2023-05-29] MEDS: ONDANSETRON INJ 4 MG/2 ML VIAL IV PUSH (18:52)
[2023-05-29 19:05] LABS: Appearance Urine Cloudy (Clear); Bacteria Urine Rare /hpf; Bilirubin Urine Negative (Negative); Blood Urine Negative (Negative); Color Urine Yellow (Yellow); Glucose Urine UA Negative (Negative); Ketones Urine Trace mg/dL (Negative); Leukocyte Esterase Ur Negative LEU/UL (Negative); Nitrate Urine Negative (Negative); Non Pathogenic Casts 0-2; Protein Urine Trace mg/dL (Negative); RBC Urine 0-2 /hpf (0-2); Specific Grav Ur 1.027 (1.001-1.035); Squamous Epithelial Cell Urine Moderate /hpf (Few); Urobilinogen Urine 0.2 mg/dL (<2.0)
[2023-05-29 19:10] LABS: Add Urine Microscopic? YES
[2023-05-29 20:51] VITALS: BP 147/84; PULSE 83; RESP 18; O2SAT 99
== END 2023-05-29 20:54 | disposition home or self-care (01) ==
PROVIDERS: Emergency Medicine; Emergency Provider Physician Assistant; PCP Nurse Practitioner Family
DX: K58.9 Irritable bowel syndrome, unspecified (principal); I10 Essential (primary) hypertension; F17.210 Nicotine dependence, cigarettes, uncomplicated
CPT/HCPCS: 36415; 74177; 80053; 81001; 81025; 83690; 85025; 87086; 96361; 96374; 96375; 99284; J1170; J2405; J7030; Q9967

== ENCOUNTER 2023-06-23 10:37 | Outpatient (CLI) | payer OTHER, SELFPAY ==
[2023-06-23 11:38] LABS: Hematocrit 39.8 % (37.0-47.0); Mean Corpuscular HGB Conc 32.7 g/dl (32-36); Mean Corpuscular Hemoglobin 26.6 pg (26-34); Mean Corpuscular Volume 81.4 fl (80-100); Mean Platelet Volume 9.3 fl (7.4-10.4); Platelet Count Result 350 k/mm3 (150-375); Red Blood Count 4.89 M/mm3 (4.2-5.4); Red Cell Distribution Width 13.2 % (11.5-14.5); White Blood Count 6.8 K/mm3 (4.5-10.0)
[2023-06-23 11:49] LABS: CRP 0.7 mg/dL (<1.0)
[2023-06-23 12:16] LABS: Erythrocyte Sedimentation Rate 18 mm/hr (0-20)
[2023-06-23 12:42] LABS: Thyroid Stimulating Hormone Reflex 0.447 uIU/mL (0.465-4.68)
[2023-06-23 14:02] LABS: Total Triiodothyronine (T3) 1.63 NG/ML (0.97-1.69)
[2023-06-26 20:02] LABS: Immunoglobulin A 187 mg/dL (47-310); TTG IGA AB <1.0 U/mL (<15.0)
== END 2023-06-23 10:38 | disposition home or self-care (01) ==
PROVIDERS: PCP Nurse Practitioner Family; Visit Provider Nurse Practitioner
DX: R93.3 Abnormal findings on diagnostic imaging of other parts of digestive tract (principal); R10.9 Unspecified abdominal pain; R19.4 Change in bowel habit; R11.2 Nausea with vomiting, unspecified; K62.5 Hemorrhage of anus and rectum; G89.29 Other chronic pain; R63.4 Abnormal weight loss
CPT/HCPCS: 36415; 82784; 84439; 84443; 84480; 85027; 85652; 86140; 86364

== ENCOUNTER 2023-06-25 10:48 | Outpatient (CLI) | payer OTHER, SELFPAY ==
[2023-07-02 13:27] LABS: Pancreatic Elastase, Stool >500 mcg/g
[2023-07-03 02:57] LABS: Calprotectin, Stool 13 mcg/g
== END 2023-06-25 10:49 | disposition home or self-care (01) ==
PROVIDERS: PCP Nurse Practitioner Family; Visit Provider Nurse Practitioner
DX: R63.4 Abnormal weight loss (principal); R19.4 Change in bowel habit; R11.2 Nausea with vomiting, unspecified; R10.9 Unspecified abdominal pain; K62.5 Hemorrhage of anus and rectum; G89.29 Other chronic pain; R93.3 Abnormal findings on diagnostic imaging of other parts of digestive tract
CPT/HCPCS: 82653; 83993; 87045; 87427; 87449

== ENCOUNTER 2023-07-14 00:29 | Day surgery (SDC) | payer OTHER, SELFPAY ==
[2023-07-02 09:04] VITALS: BMI 37.3
[2023-07-14 11:34] VITALS: BP 118/77; PULSE 55; RESP 20; TEMP 36.1; O2SAT 97
[2023-07-14] MEDS: LACTATED RINGERS 1,000 ML 150 ML IV CONT (11:51)
--- NOTE | 2023-07-14 12:18 | WPDANESEPPF ---
Anes - Initial Pre Proc Eval Procedure: Operation Date: 07/14/23 12:30 Proposed Procedures p Esophagogastroduodenoscopy & Colonoscopy - Fili Galicia MD Date/Time: 07/14/23 12:18 Surgeon: Fili Galicia MD Pre Op Diagnosis: Nausea with vomiting, abdominal pain, Patient Data Age: 32 Gender: F Height: 1.73 m Weight: 107.3 kg Last Vital Signs Temp 97.0 F L 07/14/23 11:34 Pulse 55 L 07/14/23 11:34 Resp 20 07/14/23 11:34 BP 118/77 07/14/23 11:34 Pulse Ox 97 07/14/23 11:34 O2 Del Method Room Air 07/14/23 11:34 Allergies Allergy/AdvReac Type Severity Reaction Status Date / Time No Known Allergies Allergy Verified 07/02/23 09:05 Home Medications Medication Instructions Recorded Confirmed Type omeprazole 40 mg capsule,delayed 40 mg PO DAILY #30 caps 06/23/23 07/14/23 Rx release dicyclomine 20 mg tablet 20 mg PO .every 6 hours PRN PRN 07/02/23 07/14/23 History Abdominal Pain ondansetron HCl 8 mg tablet 8 mg PO Q8H PRN Nausea And Vomiting 07/02/23 07/14/23 History Patient hx anesthesia problems: none Family hx anesthesia problems: none Results Review: All pre-operative results and documents have been reviewed as part of the pre-operative evaluation. [facility] Past Medical History Medical History (Updated 06/23/23 @ 10:59 by Sharmila Ivy, SENDY) Abnormal CT scan, small bowel Abnormal weight loss Altered bowel habits Anxiety BRBPR (bright red blood per rectum) Cannabinoid hyperemesis syndrome Chronic abdominal pain Chronic hypertension Family history of celiac disease History of methamphetamine use Nausea and vomiting Obesity Family History Family History Father Hypertension Social History Social History Years smoked: 18 Smoking status: Former smoker Tobacco type: cigarettes Alcohol intake: current Drinks per week: 2 Substance use: current Substance use type: marijuana Other substance usage details: 3x per day Last use: 07/11/2020 Living arrangements: with family Gender identity (if verbalized by the patient): Female Spiritual care concerns: No Anes - Eval Final PreProcedure Day of Procedure 07/14/23 12:18 Patient weight: obese Heart: regular rate and rhythm Lungs: clear to auscultation Airway: Mallampati scale class III Neurological: alert and oriented Last oral intake: >/= 8 hours ASA classification: III Emergent: no Anesthetic plan: proceed Anesthesia type and monitoring: general GIVS and standard monitoring Results Review: All pre-operative results and documents have been reviewed as part of the pre-operative evaluation. Informed Consent: The patient's anesthetic plan and its attendant risks and benefits were discussed with the patient/family/POA. Questions were solicited and answers provided to the satisfaction of the patient/family/POA.
--- NOTE | 2023-07-14 12:20 | WPDHPUPDATE1 ---
History and Physical Update Update Date/Time: 07/14/23 12:20 History and Physical has been reviewed, including an updated exam of the patient. There are NO changes in the patient's condition. Risks, benefits, and alternatives have been discussed and questions answered. Patient agrees to proceed with procedure.
--- NOTE | 2023-07-14 12:40 | SUR.OPER ---
EGD end 1229 COLONOSCOPY START 123
[2023-07-14 12:53] VITALS: BP 106/64; PULSE 55; RESP 19; O2SAT 96
[2023-07-14 13:03] VITALS: BP 134/74; PULSE 68; RESP 18; O2SAT 100
[2023-07-14 13:13] VITALS: BP 114/57; PULSE 63; RESP 14; O2SAT 94
== END 2023-07-14 13:23 | disposition home or self-care (01) ==
PROVIDERS: PCP Nurse Practitioner Family; Visit Provider Internal Medicine Gastroenterology
PROC: 0DJ08ZZ Inspection of Upper Intestinal Tract, Via Natural or Artificial Opening Endoscopic (ICD-10-PCS; CPT 43235; principal; 2023-07-14 12:30)
DX: K29.50 Unspecified chronic gastritis without bleeding (principal); E66.9 Obesity, unspecified; Z68.36 Body mass index [BMI] 36.0-36.9, adult; Z87.891 Personal history of nicotine dependence
CPT/HCPCS: 45380; 43239; 88305; 88342; J2704; J7120

== ENCOUNTER 2024-01-18 17:46 | Emergency (ER) | payer OTHER, SELFPAY ==
[2024-01-18 18:15] VITALS: BP 170/90; PULSE 107; RESP 20; TEMP 36.6; O2SAT 99
== END 2024-01-18 18:29 | disposition left against medical advice (07) ==
DX: R11.2 Nausea with vomiting, unspecified (principal)
CPT/HCPCS: 99199

== ENCOUNTER 2024-02-11 11:41 | Outpatient (CLI) | payer OTHER, SELFPAY ==
[2024-02-11 12:31] LABS: Hemoglobin 11.8 g/dL (12.0-15.0); Mean Corpuscular HGB Conc 31.9 g/dl (32-36); Mean Corpuscular Hemoglobin 26.6 pg (26-34); Mean Corpuscular Volume 83.5 fl (80-100); Mean Platelet Volume 9.7 fl (7.4-10.4); Platelet Count Result 320 k/mm3 (150-375); Red Blood Count 4.43 M/mm3 (4.2-5.4); Red Cell Distribution Width 13.4 % (11.5-14.5); White Blood Count 4.7 K/mm3 (4.5-10.0)
[2024-02-11 12:35] LABS: Alanine Aminotransferase 17 U/L (6-35); Albumin Level 4.1 g/dL (3.5-5.1); Alkaline Phosphatase 61 U/L (38-126); Anion Gap 6 mmol/L (4-12); Aspartate Amino Transferase 18 U/L (14-36); Bilirubin,Total 0.4 mg/dL (0.2-1.3); Blood Urea Nitrogen 10 mg/dL (7-17); Calcium 9.1 mg/dL (8.4-10.2); Carbon Dioxide 24 mmol/L (22-30); Chloride 110 mmol/L (98-107); Estimated Glomerular Filt Rate > 60; Glucose 94 mg/dL (65-110); Lipase 380 U/L (23-300); Sodium 140 mmol/L (137-145)
== END 2024-02-11 11:42 | disposition home or self-care (01) ==
LOC: ANHLAB 11:43
PROVIDERS: Visit Provider Internal Medicine Gastroenterology
DX: R10.9 Unspecified abdominal pain (principal); F12.90 Cannabis use, unspecified, uncomplicated; G89.29 Other chronic pain; R11.2 Nausea with vomiting, unspecified
CPT/HCPCS: 36415; 80053; 83690; 85027